=== PATIENT | female | born 1925 | race Caucasian/White ===

== ENCOUNTER 2016-04-23 07:38 | Emergency (ER) | payer OTHER ==
[~2016-04-23] VITALS: Ht 160 cm; Wt 49.9 kg
[2016-04-23] MEDS ORDERED: ONDANSETRON HCL 4 MG/2 ML VIAL IV ONE (08:15)
[2016-04-23] MEDS ORDERED: MORPHINE SULFATE 4 MG/ML SYRG IV ONE ×2 (08:15→10:15)
[2016-04-23 08:52] LABS: Basophils # (auto) 0 uL; Basophils % (auto) 0.4 % (0.0-2.0); Eosinophils # (auto) 0.1 uL; Eosinophils % (auto) 0.5 % (0.0-7.0); Hematocrit 36.1 % (36.0-46.0); Hemoglobin 11.9 g/dL (12.2-16.2); Lymphocytes # (auto) 1.2 uL; Mean Corpuscular Volume 87.8 fL (80.0-100.0); Mean Platelet Volume 8.8 fL (7.4-10.4); Monocytes # (auto) 0.4 uL; Monocytes % (auto) 4.4 % (0.0-12.0); Neutrophils # (auto) 8.2 uL; Neutrophils % (auto) 82.7 % (37.0-80.0); Platelet Count (auto) 290 10^3/uL (140-450); Red Cell Distribution Width 14.6 % (11.6-16.0); White Blood Cell 9.9 10^3/uL (4.4-10.8)
[2016-04-23 09:23] LABS: Albumin 3.5 g/dL (3.4-5.0); BUN/Creatinine Ratio 26.6; Bilirubin, Total 0.5 mg/dL (0.2-1.0); Calcium 8.7 mg/dL (8.5-10.1); Magnesium 2.1 mg/dL (1.6-2.6); Potassium 4.1 mmol/L (3.5-5.1); Total Protein 6.6 g/dL (6.4-8.2)
[2016-04-23 09:49] LABS: INR 1.02 (0.9-1.15); Partial Thromboplastin Time 23.8 sec (22.64-33.71); Prothrombin Time 10.5 sec (9.37-12.3)
[2016-04-23] MEDS ORDERED: HYDROcodone-ACET 5/325MG TAB PO PRN (11:45)
[2016-04-23 16:55] VITALS: BP 120/70
== END 2016-04-23 17:18 | disposition home or self-care (01) ==
LOC: ER 07:38 → EDBD 07:38 → ER 17:18
DX: S32.592A Other specified fracture of left pubis, initial encounter for closed fracture (principal); S51.012A Laceration without foreign body of left elbow, initial encounter; M19.90 Unspecified osteoarthritis, unspecified site; M25.572 Pain in left ankle and joints of left foot; M79.672 Pain in left foot; R53.1 Weakness; I10 Essential (primary) hypertension; W01.0XXA Fall on same level from slipping, tripping and stumbling without subsequent striking against object, initial encounter; Y93.01 Activity, walking, marching and hiking; Y92.89 Other specified places as the place of occurrence of the external cause; Y99.8 Other external cause status
CPT/HCPCS: 36415; 71010; 72192; 73502; 73560; 80053; 83735; 85025; 85610; 85730; 93005; 94761; 96374; 96375; 96376; 99285; J2270; J2405